=== PATIENT | female | born 1985 | race Caucasian/White ===

== ENCOUNTER 2016-09-22 18:41 | Inpatient (IN) | payer OTHER ==
[~2016-09-22] VITALS: Ht 162.6 cm; Wt 91.4 kg
[~2016-09-22 18:41] MED LIST: IBUP-1222 PO
[2016-09-22] MEDS ORDERED: NEWBORN KIT ONE (19:35)
[2016-09-22] MEDS ORDERED: OXYTOCIN 30U/ 0.9% NaCL 500ML 500 ML IV PRN (19:40)
[2016-09-22] MEDS ORDERED: OXYTOCIN 30U/ 0.9% NaCL 500ML 500 ML IV ONE (19:40)
[2016-09-22] MEDS: LACTATED RINGERS 1,000 ML IV SCH (19:40)
[2016-09-22] MEDS ORDERED: CALCIUM CARBONATE 500 MG TAB.CHEW PO PRN (20:00)
[2016-09-22] MEDS ORDERED: FENTANYL PF 100 MCG/2ML IV PRN (20:00)
[2016-09-22] MEDS ORDERED: FENTANYL PF 100 MCG/2ML IVPush PRN (20:00)
[2016-09-22] MEDS ORDERED: ONDANSETRON 2MG/ML, 2ML IVPush PRN (20:00)
[2016-09-22] MEDS ORDERED: TERBUTALINE 1 MG/ML, 1ML SQ PRN (20:00)
[2016-09-23] MEDS ORDERED: ACETAMINOPHEN 325 MG TABLET ONE (00:05)
[2016-09-23] MEDS ORDERED: ACETAMINOPHEN 325 MG TABLET PO PRN ×3 (00:05→09:30)
[2016-09-23] MEDS ORDERED: OXYTOCIN 30U/ 0.9% NaCL 500ML 500 ML ONE ×3 (01:34→10:43)
[2016-09-23] MEDS: D5%-LACTATED RINGERS 1,000 ML IV SCH ×2 (03:40→07:36)
[2016-09-23] MEDS: LACTATED RINGERS 1,000 ML IV SCH (03:40)
[2016-09-23] MEDS ORDERED: CEFAZOLIN PMX 2GM/50ML 50 ML IV SCH (07:00)
[2016-09-23] MEDS ORDERED: CALCIUM CARBONATE 500 MG TAB.CHEW ONE (07:05)
[2016-09-23] MEDS ORDERED: LIDOCAINE 1%, 20ML ONE (08:45)
[2016-09-23] MEDS: OXYTOCIN 30U/ 0.9% NaCL 500ML 500 ML IV SCH ×2 (09:15→10:45)
[2016-09-23] MEDS ORDERED: MAGNESIUM HYDROXIDE 8%, 30ML UDC PO PRN (09:30)
[2016-09-23] MEDS ORDERED: RHOGAM FROM BLOOD BANK 1 NOTE EA IM/IV ONE (09:30)
[2016-09-23] MEDS ORDERED: MISOPROSTOL 200 MCG TABLET PR PRN (09:30)
[2016-09-23] MEDS ORDERED: OXYcodone/APAP 5/325MG TABLET PO PRN ×2 (09:30)
[2016-09-23] MEDS ORDERED: ONDANSETRON 2MG/ML, 2ML IV PRN (09:30)
[2016-09-23] MEDS ORDERED: IBUPROFEN 600 MG TABLET PO PRN (09:30)
[2016-09-23] MEDS ORDERED: CALCIUM CARBONATE 500 MG TAB.CHEW PO PRN (09:30)
[2016-09-23] MEDS ORDERED: DOCUSATE 100 MG CAPSULE PO PRN (09:30)
[2016-09-23] MEDS ORDERED: DIPH,PERTUSS(ACELL),TET VAC/PF NC IM-VACC PRN (09:30)
[2016-09-23] MEDS ORDERED: MEASLES,MUMPS&RUBELLA VACC/PF 0.5 ML SQ PRN (09:30)
[2016-09-23] MEDS ORDERED: MISOPROSTOL 200 MCG TABLET ONE (10:43)
[2016-09-23 10:50] VITALS: BP 122/70
[2016-09-23 15:00] VITALS: BP 107/61
[2016-09-23 19:40] VITALS: BP 114/69
[2016-09-24 00:15] VITALS: BP 103/61
[2016-09-24 05:00] VITALS: BP 107/64
[2016-09-24] MEDS: OXYTOCIN 30U/ 0.9% NaCL 500ML 500 ML IV SCH ×2 (05:06→06:05)
[2016-09-24 07:20] VITALS: BP 113/74
[2016-09-24] MEDS ORDERED: PRENATAL VIT/IRON/FA 1 EACH TABLET PO SCH (09:00)
[2016-09-24] MEDS ORDERED: OXYC-302 PO (09:11)
[2016-09-24] MEDS ORDERED: IBUP-1222 PO (09:12)
== END 2016-09-24 11:46 | disposition home or self-care (01) | DRG 775 ==
LOC: LDOP 18:41 → LDIP 19:48 → 2NW 09-23 10:39
PROVIDERS: ADMIT Obstetrics & Gynecology; ATTEND Obstetrics & Gynecology
PROC: 10E0XZZ Delivery of Products of Conception, External Approach (ICD-10-PCS; principal; 2016-09-23)
PROC: 0KQM0ZZ Repair Perineum Muscle, Open Approach (ICD-10-PCS; 2016-09-23)
DX: O42.92 Full-term premature rupture of membranes, unspecified as to length of time between rupture and onset of labor (principal); O69.1XX0 Labor and delivery complicated by cord around neck, with compression, not applicable or unspecified; O70.1 Second degree perineal laceration during delivery; Z3A.39 39 weeks gestation of pregnancy; Z37.0 Single live birth
CPT/HCPCS: 36415; 82803; 85025; 86850; 86900; 89060; J0690; J2590; J7121; Q0114